=== PATIENT | female | born 1985 | race Caucasian/White ===

== ENCOUNTER 2017-08-01 16:52 | Emergency (ER) | payer OTHER, MEDICAID ==
[~2017-08-01] VITALS: Ht 162.6 cm; Wt 49.9 kg
[2017-08-01 16:58] VITALS: BP 118/80
[2017-08-01] MEDS ORDERED: AUGMENTIN 875-1 EACH PO (17:17)
== END 2017-08-01 17:25 | disposition home or self-care (01) ==
LOC: M.ERS 16:52
DX: J01.00 Acute maxillary sinusitis, unspecified (principal); J30.89 Other allergic rhinitis

== ENCOUNTER 2017-11-07 20:01 | Emergency (ER) | payer OTHER ==
[~2017-11-07] VITALS: Ht 162.6 cm; Wt 54.4 kg
[~2017-11-07 20:01] MED LIST: AUGMENTIN 875-1 EACH PO
[2017-11-07 20:25] LABS: URINE BILIRUBIN NEGATIVE (Negative); URINE BLOOD 3+ (Negative); URINE CLARITY CLOUDY; URINE COLOR YELLOW; URINE GLUCOSE-RANDOM NEGATIVE (Negative); URINE KETONES NEGATIVE (Negative); URINE LEUKOCYTES-REFLEX 1+ (Negative); URINE NITRITE-REFLEX POSITIVE (Negative); URINE PROTEIN 3+ (Negative); URINE SPECIFIC GRAVITY >= 1.030 (1.005-1.030); URINE UROBILINOGEN 0.2 E.U./dl (0.2-1.0)
[2017-11-07] MEDS ORDERED: BACTRIM DS TAB1 EACH PO (20:32)
[2017-11-07] MEDS ORDERED: PHENAZOPYRIDIN200 M2 PO (20:34)
[2017-11-07] MEDS ORDERED: TRAMADOL 50 MG50 MG PO (20:34)
[2017-11-07 20:39] LABS: SQUAMOUS 0-3 Few /LPF (0-3); URINE WBC-REFLEX >25 Many /HPF (0-5); WBC CLUMPS Few (None Seen)
[2017-11-07 20:40] LABS: CASTS None Seen /LPF (None Seen); CRYSTALS None Seen /LPF (None Seen); MUCUS None Seen strn/LPF (None Seen); URINE RBC 3-10 Few /HPF (0-2)
[2017-11-07 20:47] VITALS: BP 138/68
== END 2017-11-07 21:00 | disposition home or self-care (01) ==
LOC: M.ERS 20:01
PROVIDERS: Nurse Practitioner Family
DX: N39.0 Urinary tract infection, site not specified (principal)

== ENCOUNTER 2018-04-22 19:51 | Emergency (ER) | payer OTHER ==
[~2018-04-22] VITALS: Ht 162.6 cm; Wt 54.4 kg
[~2018-04-22 19:51] MED LIST changes: +BACTRIM DS TAB1 EACH PO; +PHENAZOPYRIDIN200 M2 PO; +TRAMADOL 50 MG50 MG PO
[2018-04-22] MEDS ORDERED: ACETAMINOPHEN-1 EAC1 PO (22:22)
[2018-04-22 22:28] VITALS: BP 121/81
== END 2018-04-22 22:29 | disposition home or self-care (01) ==
LOC: M.ERS 19:51
DX: S00.83XA Contusion of other part of head, initial encounter (principal); J45.909 Unspecified asthma, uncomplicated; Z88.1 Allergy status to other antibiotic agents; Z88.6 Allergy status to analgesic agent; Z98.890 Other specified postprocedural states; Y08.89XA Assault by other specified means, initial encounter; Y93.89 Activity, other specified; Y92.89 Other specified places as the place of occurrence of the external cause; Y99.8 Other external cause status